=== PATIENT | female | born 1950 | race Caucasian/White ===

== ENCOUNTER 2018-07-30 12:28 | Outpatient (REF) | payer MEDICARE, SELFPAY ==
[2018-07-30 20:50] LABS: ALT 30 U/L (12-78); Anion Gap 7.9 mmol/L (3-11); BUN 10 mg/dL (7-18); CO2 32.1 mmol/L (21.0-32.0); Calcium 9.2 mg/dL (8.5-10.1); Chloride 97 mmol/L (98-107); Glucose 104 mg/dL (70-100); LDL CHOLESTEROL 66 mg/dL (<100); Potassium 3.6 mmol/L (3.5-5.1); Sodium 137 mmol/L (136-145)
== END 2018-07-30 12:48 ==
LOC: NCHCN 12:28
PROVIDERS: PCP Physician Assistant; Visit Provider Internal Medicine
DX: E78.5 Hyperlipidemia, unspecified (principal); F41.0 Panic disorder [episodic paroxysmal anxiety]
CPT/HCPCS: 80048; 83721; 84460

== ENCOUNTER 2019-12-05 16:27 | Outpatient (REF) | payer MEDICARE, SELFPAY ==
[2019-12-05 19:52] LABS: ALT 23 U/L (14-59); Anion Gap 5.5 mmol/L (3-11); BUN 13 mg/dL (7-18); CO2 32.5 mmol/L (21.0-32.0); CREATININE 0.74 mg/dL (0.55-1.02); Calcium 9.5 mg/dL (8.5-10.1); Chloride 99 mmol/L (98-107); Glucose 90 mg/dL (74-106); LDL CHOLESTEROL 66 mg/dL (<100); Potassium 3.5 mmol/L (3.5-5.1); Sodium 137 mmol/L (136-145)
== END 2019-12-05 16:47 ==
LOC: NCHCN 16:27
PROVIDERS: PCP Physician Assistant; Visit Provider Internal Medicine
DX: E78.5 Hyperlipidemia, unspecified (principal); I10 Essential (primary) hypertension; M54.6 Pain in thoracic spine
CPT/HCPCS: 80048; 83721; 84460

== ENCOUNTER 2020-12-06 12:37 | Outpatient (REF) | payer MEDICARE, SELFPAY ==
[2020-12-06 19:35] LABS: ALT 25 U/L (14-59); Anion Gap 6.7 mmol/L (3-11); BUN 7 mg/dL (7-18); CO2 33.3 mmol/L (21.0-32.0); CREATININE 0.8 mg/dL (0.55-1.02); Calcium 9.6 mg/dL (8.5-10.1); Chloride 99 mmol/L (98-107); Glucose 101 mg/dL (74-106); LDL CHOLESTEROL 62 mg/dL (<100); Potassium 3.5 mmol/L (3.5-5.1); Sodium 139 mmol/L (136-145)
== END 2020-12-06 12:38 | disposition home or self-care (01) ==
LOC: NCHCN 12:37
PROVIDERS: PCP Physician Assistant; Visit Provider Internal Medicine
DX: I10 Essential (primary) hypertension (principal); E78.5 Hyperlipidemia, unspecified; Z00.00 Encounter for general adult medical examination without abnormal findings
CPT/HCPCS: 80048; 83721; 84460

== ENCOUNTER 2021-12-12 16:52 | Outpatient (REF) | payer MEDICARE, SELFPAY ==
[2021-12-12 19:19] LABS: Anion Gap 5.3 mmol/L (3-11); BUN 10 mg/dL (7-18); CO2 31.7 mmol/L (21.0-32.0); CREATININE 0.8 mg/dL (0.55-1.02); Calcium 9.3 mg/dL (8.5-10.1); Chloride 98 mmol/L (98-107); Estimated GFR 79.71 (mL/min/1.73m2); Glucose 101 mg/dL (74-106); LDL CHOLESTEROL 67 mg/dL (<100); Potassium 3.7 mmol/L (3.5-5.1); Sodium 135 mmol/L (136-145)
== END 2021-12-12 16:53 | disposition home or self-care (01) ==
LOC: NCHCN 16:52
PROVIDERS: PCP Physician Assistant; Visit Provider Internal Medicine
DX: E78.5 Hyperlipidemia, unspecified (principal); I10 Essential (primary) hypertension
CPT/HCPCS: 80048; 83721

== ENCOUNTER 2022-12-15 16:33 | Outpatient (REF) | payer MEDICARE, SELFPAY ==
[2022-12-15 19:07] LABS: ALT 25 U/L (14-59); BUN 11 mg/dL (7-18); CREATININE 0.7 mg/dL (0.55-1.02); Calcium 9.9 mg/dL (8.5-10.1); Calculated LDL 65 mg/dL (<100); Chloride 97 mmol/L (98-107); Cholesterol 148 mg/dL (<200); Creatine Kinase 113 U/L (26-192); Estimated GFR 92.98 (mL/min/1.73m2); Glucose 103 mg/dL (74-106); HDL Cholesterol 59 mg/dL (40-60); Potassium 3.5 mmol/L (3.5-5.1); Sodium 134 mmol/L (136-145); TSH 2.27 uIU/mL (0.36-3.74); Triglyceride 121 mg/dL (<150)
== END 2022-12-15 16:34 | disposition home or self-care (01) ==
LOC: NCHCN 16:33
PROVIDERS: PCP Physician Assistant; Visit Provider Internal Medicine
DX: E78.5 Hyperlipidemia, unspecified (principal); K21.9 Gastro-esophageal reflux disease without esophagitis; I10 Essential (primary) hypertension; R79.89 Other specified abnormal findings of blood chemistry
CPT/HCPCS: 80048; 80061; 82550; 84443; 84460

== ENCOUNTER 2024-12-23 16:23 | Outpatient (REF) | payer MEDICARE, SELFPAY ==
[2024-12-23 19:56] LABS: ALT 31 U/L (14-59); AST 14 U/L (15-37); Albumin 3.9 g/dL (3.4-5.0); Alkaline Phosphatase 134 U/L (46-116); Anion Gap 5.4 mmol/L (3-11); BUN 13 mg/dL (7-18); Bilirubin, Total 0.7 mg/dL (0.2-1.0); CO2 31.6 mmol/L (21.0-32.0); Calcium 9.3 mg/dL (8.5-10.1); Chloride 102 mmol/L (98-107); Estimated GFR 91.83 (mL/min/1.73m2); Glucose 104 mg/dL (74-106); Potassium 3.8 mmol/L (3.5-5.1); Sodium 139 mmol/L (136-145); Total Protein 7.5 g/dL (6.4-8.2)
== END 2024-12-23 16:24 | disposition home or self-care (01) ==
LOC: NCHCN 16:23
PROVIDERS: PCP Physician Assistant; Visit Provider Physician Assistant
DX: E78.5 Hyperlipidemia, unspecified (principal)
CPT/HCPCS: 80053